=== PATIENT | female | born 1995 ===

== ENCOUNTER 2017-01-30 20:58 | Emergency (ER) | payer OTHER ==
[2017-01-30 21:11] VITALS: BP 114/72; PULSE 90; RESP 20; TEMP 97.6; O2SAT 100
[2017-01-30] MEDS ORDERED: Sucralfate 1 gm/10 ml Oral Susp UD PO STA (21:29)
--- NOTE | 2017-01-30 21:37 | C.PDOC ---
History Of Present Illness 21 yo female w/o significant PMHx come in for evaluation of gradual onset for Right sided frontal headache associated with nausea, light sensitivity for past 2 days. Also reports, post-nasal dip for past few days. Admits, previous hx of migraine headache. Otherwise, pt denies worse headache of life, dizziness, vertigo, visual changes, focal deficits, neck pain, rash, drooling, dysphagia, dyspnea, CP, SOB, diaphoresis, palpitation., V/D, UTI sx. Ambulate to Ed for evaluation, appears in some pain. Time Seen by Provider: 01/30/17 21:10 Chief Complaint (Nursing): Headache History Per: Patient Onset/Duration Of Symptoms: Gradual Current Symptoms Are (Timing): Still Present Past Medical History Reviewed: Historical Data, Nursing Documentation, Vital Signs Vital Signs: Last Vital Signs Temp 97.6 F 01/30/17 21:09 Pulse 90 01/30/17 21:09 Resp 20 01/30/17 21:09 BP 114/72 01/30/17 21:09 Pulse Ox 100 01/30/17 21:44 - Medical History PMH: No Chronic Diseases Surgical History: No Surg Hx - [facility] Procedures LOW CERVICAL (12/23/13) Family History: States: No Known Family Hx - Social History Hx Tobacco Use: No Hx Alcohol Use: No Hx Substance Use: No - Immunization History Hx Tetanus Toxoid Vaccination: No Hx Influenza Vaccination: No Hx Pneumococcal Vaccination: No Review Of Systems Except As Marked, All Systems Reviewed And Found Negative. Constitutional: Negative for: Fever, Chills Eyes: Negative for: Vision Change ENT: Positive for: Nose Congestion. Negative for: Ear Discharge, Nose Discharge , Throat Pain Cardiovascular: Negative for: Chest Pain, Palpitations, Edema, Light Headedness Respiratory: Negative for: Cough, Shortness of Breath, Wheezing Genitourinary: Negative for: Dysuria, Frequency, Hematuria Musculoskeletal: Negative for: Neck Pain Skin: Negative for: Rash Neurological: Positive for: Headache. Negative for: Weakness, Numbness, Altered Mental Status, Dizziness Physical Exam - Physical Exam Appears: Well, Non-toxic, No Acute Distress Skin: Normal Color, Warm, Dry, No Rash Head: Normacephalic Eye(s): bilateral: Normal Inspection Ear(s): Bilateral: Normal Nose: Discharge (B/L nasal congestion), Other ((+) post-nasal drip) Oral Mucosa: Moist, No Drooling Tongue: Normal Appearing Lips: Normal Appearing Throat: Normal, No Erythema, No Exudate, No Drooling Neck: Normal, Normal ROM, Supple Chest: Symmetrical Cardiovascular: Rhythm Regular Respiratory: Normal Breath Sounds, No Stridor, No Wheezing Gastrointestinal/Abdominal: Normal Exam, Soft, No Tenderness Back: Normal Inspection, No CVA Tenderness Extremity: Normal ROM, No Tenderness, No Pedal Edema Neurological/Psych: Oriented x3, Normal Speech ED Course And Treatment - Laboratory Results Urine POC: Negative O2 Sat by Pulse Oximetry: 100 Pulse Ox Interpretation: Normal Progress Note: On re-evaluation, pt is afebrile, hemodynamicaly stable. Non- toxic. Tolerate po well in ED. PulseOx 100% RA. neck: (-) meningeal sign. ENT : no acute findings. uvula midline, no edema. Lungs: CTA B/L, BS equal B/L. Abd: benign, (-) guarding, (-) rebound, (-) localized tenderness. Neurologicaly intact. UA review and appears normal. Pt has clinical findings c /w headache, seasonal allergy. Pt advised on course of ds. ref. to f/u with PMD in 2-3 days for re-eval. returbn if any new changes. Disposition Counseled Patient/Family Regarding: Studies Performed, Diagnosis, Need For Followup, Rx Given - Disposition Referrals: Thomas Mathis MD [Medical Doctor] - Disposition: HOME/ ROUTINE Disposition Time: 22:28 Condition: STABLE Additional Instructions: Encourage fluids Take medication as prescribed Follow up with PMD in 2-3 days for re-evaluation. Return to ED if any worsening or new changes. Prescriptions: Loratadine [Claritin] 10 mg PO DAILY #10 tab Prednisone [Deltasone] 20 mg PO DAILY #3 tablet Acetaminophen/Butalbital/Caf [Fioricet] 1 tab PO TID #10 tab Instructions: Migraine Headache (ED) Print Language: ARMENIAN - Clinical Impression Clinical Impression: Headache, acute, Seasonal allergies
[2017-01-30 22:13] LABS: RBC URINE 1 /hpf (0-3); URINE BACTERIA OCC (<OCC); URINE BILIRUBIN NEGATIVE (NEGATIVE); URINE BLOOD NEGATIVE (NEGATIVE); URINE COLOR Yellow (YELLOW); URINE GLUCOSE (UA) NORMAL (Normal); URINE KETONE NEGATIVE (NEGATIVE); URINE LEUKOCYTE ESTERASE NEG Leu/uL (Negative); URINE PROTEIN NEGATIVE (NEGATIVE); URINE UROBILINOGEN NORMAL mg/dL (0.2-1.0); WBC URINE 4 /hpf (0-5)
== END 2017-01-30 23:04 | disposition home or self-care (01) ==
LOC: C.ER 20:58
DX: J30.2 Other seasonal allergic rhinitis (principal); R51 Headache